=== PATIENT | female | born 1930 | race Caucasian/White ===

== ENCOUNTER 2018-04-29 13:19 | Emergency (ER) | payer MEDICARE, OTHER ==
[~2018-04-29] VITALS: Ht 157.5 cm; Wt 55.0 kg
[~2018-04-29 13:19] MED LIST: ARICEPT10 MG PO; CITALOPRAM20 MG PO; EPA/GLA1 SGL PO; ETODOLAC200 MG PO; LEVOTHYROXIN0.075 MG PO; LEVOXYL0.05 MG PO; LITHIUM 30300 MG/CAP PO; NAMENDA10 MG PO; NORCO 325 MG-51 TAB PO; NORVASC2.5 MG PO; PRAVACHOL 40MG40 MG PO; SIMVASTATIN20 MG PO; VITAMIN D1000 IU PO
[2018-04-29 13:31] VITALS: TEMP 97.4
[2018-04-29 14:07] VITALS: BP 184/80; PULSE 75
[2018-04-29] MEDS ORDERED: AMOXICILLIN 8751 TAB PO (14:14)
== END 2018-04-29 14:20 | disposition home or self-care (01) ==
LOC: COL.ER 13:19
DX: S61.051A Open bite of right thumb without damage to nail, initial encounter (principal); Z23 Encounter for immunization; W55.81XA Bitten by other mammals, initial encounter